=== PATIENT | female | born 2000 | race Caucasian/White ===

== ENCOUNTER → 2019-07-31 | Outpatient (CLI) | payer OTHER ==
--- NOTE | 2019-07-31 12:54 | RADIOLOGY REPORT (SQ) ---
EXAM DESCRIPTION: HYSTERO CATH/INJECTION; HYSTEROSALPINGOGRAM COMPLETED DATE/TIME: 07/31/2019 10:59 am REASON FOR STUDY: INFERTILITY COMPARISON: None. PROCEDURE: PRE-PROCEDURE: Procedure was explained to the patient. She was told to expect cramping du ring the procedure, and possible spotting post procedure. PROCEDURE: The cervix was prepped in sterile fashion. Under direct visual inspection, the cervix was cannulated with the hysterosalpingogram catheter and contrast injected. TECHNIQUE: Temporal fluoroscopic images acquired during the procedure stored to PACS. FLUOROSCOPY TIME: 18 seconds. 7 images saved to PACS. LIMITATIONS: None. FINDINGS: UTERUS: No identified anomalies. No synechia. RIGHT ADNEXA: Partial filling of the proximal fallopian tube. No free spill of contrast into the per itoneal cavity due to previous surgical resection. LEFT ADNEXA: Normal size fallopian tube. Free spill of contrast into the peritoneal cavity. POST PROCEDURE: The patient tolerated the procedure with no adverse effects. IMPRESSION: NORMAL HYSTEROSALPINGOGRAM. SURGICAL CHANGES INVOLVING THE RIGHT FALLOPIAN TUBE. PATEN T LEFT FALLOPIAN TUBE. COMMENT: Study performed by and interpreted by the radiologist. Quality ID [id number]: Final reports for procedures using fluoroscopy that document radiation exposure maximiliano bambi, or exposure time and number of fluorographic images (if radiation exposure indices are not avail able) TECHNICAL DOCUMENTATION: JOB ID: [id number] [employer]- All Rights Reserved Reading location - IP/workstation name: [email or web address]
== END ==
LOC: RAD 09:50
PROVIDERS: ATTEND Obstetrics & Gynecology
DX: N97.9 Female infertility, unspecified (principal)
CPT/HCPCS: 58340; 74740